=== PATIENT | female | born 1955 | race Caucasian/White ===

== ENCOUNTER → 2023-07-06 10:46 | Outpatient (REF) | payer MEDICARE, BC, SELFPAY ==
[2023-07-07 19:26] LABS: CA 125 8.9 U/mL (0-35)
== END ==
LOC: HWLAB 10:46
PROVIDERS: ATTENDING PHYSICIAN Obstetrics & Gynecology Gynecologic Oncology; FAMILY PHYSICIAN Internal Medicine
DX: C56.3 Malignant neoplasm of bilateral ovaries (principal); R97.1 Elevated cancer antigen 125 [CA 125]
CPT/HCPCS: 36415; 86304

== ENCOUNTER → 2023-08-23 09:57 | Outpatient (REF) | payer MEDICARE, BC, SELFPAY | LOC: PAVMRI 09:57 | PROVIDERS: ATTENDING PHYSICIAN Student in an Organized Health Care Education/Training Program; FAMILY PHYSICIAN Internal Medicine | DX: M25.511 Pain in right shoulder (principal) | CPT/HCPCS: 73221 ==

== ENCOUNTER → 2024-01-04 12:02 | Outpatient (REF) | payer MEDICARE, BC, SELFPAY ==
[2024-01-05 19:27] LABS: CA 125 8.5 U/mL (0-35)
== END ==
LOC: HWLAB 12:02
PROVIDERS: ATTENDING PHYSICIAN Obstetrics & Gynecology Gynecologic Oncology; FAMILY PHYSICIAN Internal Medicine
DX: C56.3 Malignant neoplasm of bilateral ovaries (principal); R97.1 Elevated cancer antigen 125 [CA 125]
CPT/HCPCS: 36415; 86304

== ENCOUNTER → 2024-02-13 09:01 | Outpatient (REF) | payer MEDICARE, BC, SELFPAY ==
[2024-02-13 11:19] LABS: % Basophils 1.7 % (0-2); % Immature Granulocytes 0.2 % (0-0.5); % Lymphocytes 38.9 % (20.5-51.1); % Neutrophils 43.2 % (42.2-75.2); Absolute Basophils 0.1 10^3/uL (0-0.2); Absolute Eosinophils 0.3 10^3/uL (0-0.7); Absolute Lymphocytes 2.1 10^3/uL (1.2-3.4); Absolute Monocytes 0.6 10^3/uL (0.1-0.6); Absolute Neutrophils 2.3 10^3/uL (1.4-6.5); Hemoglobin 14.7 g/dL (12.0-16.0); Mean Corp Hgb Conc. 34.2 g/dL (33.0-37.0); Mean Corpuscular Hgb 29.2 pg (27.0-31.0); Mean Corpuscular Volume 85.5 fL (81.0-99.0); Mean Platelet Volume 9.2 fL (7.4-10.4); Nucleated Red Blood Cells % 0 %; Platelet Count 320 10^3/uL (130-400); Red Blood Cell Count 5.03 10^6/uL (4.20-5.40); White Blood Cell Count 5.4 10^3/uL (4.8-10.8)
[2024-02-13 11:40] LABS: ALT (SGPT) 23 U/L (0-35); AST (SGOT) 26 U/L (14-36); Albumin 4.3 g/dl (3.5-5.0); Alkaline Phosphatase 89 U/L (38-126); Blood Urea Nitrogen 16 mg/dl (7-17); Calcium 9.5 mg/dl (8.4-10.2); Carbon Dioxide 26 mmol/L (22-30); Chloride 105 mmol/L (98-107); Glucose 105 mg/dl (70-99); Potassium 4.4 mmol/L (3.5-5.1); Sodium 142 mmol/L (135-145); Total Bilirubin 0.6 mg/dl (0.2-1.3); Total Protein 6.8 g/dl (6.3-8.2); eGFR > 60.00
== END ==
LOC: HWLAB 09:01
DX: R42 Dizziness and giddiness (principal)
CPT/HCPCS: 36415; 80053; 85025

== ENCOUNTER → 2024-02-16 14:47 | Outpatient (REF) | payer MEDICARE, BC, SELFPAY | LOC: HWWDC 14:47 | PROVIDERS: ATTENDING PHYSICIAN Obstetrics & Gynecology Gynecology; FAMILY PHYSICIAN Internal Medicine | DX: Z12.31 Encounter for screening mammogram for malignant neoplasm of breast (principal) | CPT/HCPCS: 77063; 77067 ==

== ENCOUNTER → 2024-03-05 09:47 | Outpatient (REF) | payer MEDICARE, BC, SELFPAY ==
[2024-03-05 12:43] LABS: HDL Cholesterol 46 mg/dl; LDL Cholesterol, Calculated 135 mg/dl; Total Cholesterol 206 mg/dl (50-199); Triglyceride 129 mg/dl (10-149); Very Low Density Lipoprotein 25 mg/dl (0-30)
[2024-03-05 12:55] LABS: Glycohemoglobin (HgbA1c) 5.9 % (4.0-5.6)
== END ==
LOC: HWLAB 09:47
PROVIDERS: ATTENDING PHYSICIAN Student in an Organized Health Care Education/Training Program
DX: R94.31 Abnormal electrocardiogram [ECG] [EKG] (principal); E78.5 Hyperlipidemia, unspecified; R73.01 Impaired fasting glucose
CPT/HCPCS: 36415; 80061; 83036

== ENCOUNTER → 2024-04-02 09:10 | Outpatient (REF) | payer MEDICARE, BC, SELFPAY ==
[2024-04-02 12:15] LABS: ALT (SGPT) 24 U/L (0-35); AST (SGOT) 28 U/L (14-36); Albumin 4.3 g/dl (3.5-5.0); Alkaline Phosphatase 90 U/L (38-126); Blood Urea Nitrogen 14 mg/dl (7-17); Calcium 9.5 mg/dl (8.4-10.2); Carbon Dioxide 26 mmol/L (22-30); Chloride 107 mmol/L (98-107); Glucose 104 mg/dl (70-99); HDL Cholesterol 48 mg/dl; LDL Cholesterol, Calculated 54 mg/dl; Potassium 4.4 mmol/L (3.5-5.1); Sodium 141 mmol/L (135-145); Total Bilirubin 0.7 mg/dl (0.2-1.3); Total Cholesterol 121 mg/dl (50-199); Total Protein 6.6 g/dl (6.3-8.2); Triglyceride 98 mg/dl (10-149); Very Low Density Lipoprotein 19 mg/dl (0-30); eGFR > 60.00
== END ==
LOC: HWLAB 09:10
PROVIDERS: ATTENDING PHYSICIAN Student in an Organized Health Care Education/Training Program; FAMILY PHYSICIAN Internal Medicine
DX: E78.2 Mixed hyperlipidemia (principal)
CPT/HCPCS: 36415; 80053; 80061

== ENCOUNTER → 2024-07-04 10:25 | Outpatient (REF) | payer MEDICARE, BC, SELFPAY ==
[2024-07-05 18:10] LABS: CA 125 < 5.5 U/mL (0-35)
== END ==
LOC: HWLAB 10:25
PROVIDERS: ATTENDING PHYSICIAN Obstetrics & Gynecology Gynecologic Oncology
DX: C56.3 Malignant neoplasm of bilateral ovaries (principal); R97.1 Elevated cancer antigen 125 [CA 125]
CPT/HCPCS: 36415; 86304

== ENCOUNTER → 2024-09-12 14:23 | Outpatient (REF) | payer MEDICARE, BC, SELFPAY | LOC: HWRAD 14:23 | DX: R10.12 Left upper quadrant pain (principal) | CPT/HCPCS: 76705 ==

== ENCOUNTER → 2025-01-09 09:43 | Outpatient (REF) | payer MEDICARE, BC, SELFPAY ==
[2025-01-10 19:22] LABS: CA 125 6.4 U/mL (0-35)
== END ==
LOC: HWLAB 09:43
PROVIDERS: ATTENDING PHYSICIAN Obstetrics & Gynecology Gynecologic Oncology
DX: C56.3 Malignant neoplasm of bilateral ovaries (principal); R97.1 Elevated cancer antigen 125 [CA 125]
CPT/HCPCS: 86304